=== PATIENT | female | born 1990 | race Caucasian/White ===

== ENCOUNTER → 2022-08-15 14:08 | Outpatient (BNVA) | payer OTHER, SELFPAY | PROVIDERS: PCP Family Medicine; Visit Provider Family Medicine | DX: Z20.2 Contact with and (suspected) exposure to infections with a predominantly sexual mode of transmission (principal); B00.1 Herpesviral vesicular dermatitis; F41.9 Anxiety disorder, unspecified; F32.A Depression, unspecified | CPT/HCPCS: 85025; 86592; 86803; 87491; 87591; 87661; 87806 ==